=== PATIENT | male | born 1940 | race Caucasian/White ===

== ENCOUNTER 2022-07-16 13:17 | Inpatient (IN) | payer OTHER, MEDICAID ==
[~2022-07-16] VITALS: Ht 167.6 cm; Wt 66.3 kg
[2022-07-16] MEDS ORDERED: ACETAMINOPHEN 650MG SUPP PR STA (13:26)
[2022-07-16] MEDS ORDERED: CEFTRIAXONE 1 G PREMIX 50 ML IV ONE (13:30)
[2022-07-16] MEDS ORDERED: SODIUM CHLORIDE 0.9% 1000ML BAG (SEPSIS BOLUS) IV ONE (13:30)
[2022-07-16 13:55] LABS: BASOPHILS % 0.3 % (0.0-2.0); EOSINOPHILS % 0.4 % (0.0-5.0); HEMATOCRIT. 33.1 % (42.0-52.0); HEMOGLOBIN. 10.6 g/dL (14.0-18.0); LYMPHOCYTES % 17.9 % (20.0-50.0); MEAN CORPUSCULAR HEMOGLOBIN 30.3 pg (28.0-32.0); MEAN CORPUSCULAR VOLUME 94.5 fL (80.0-94.0); MEAN PLATELET VOLUME 7.4 fl (7.4-10.4); MONOCYTES % 6.8 % (2.0-8.0); NEUTROPHILS % 74.6 % (40.0-76.0); PLATELET 249 x1000/uL (130-400); RED BLOOD CELL COUNT 3.51 mill/uL (4.7-6.1); RED CELL DISTRIBUTION WIDTH 17.3 % (11.6-14.6)
[2022-07-16 14:05] LABS: CHLORIDE 99 mEq/L (98-107)
[2022-07-16 15:49] LABS: CLARITY URINE CLOUDY (CLEAR); COLOR URINE YELLOW (YELLOW); KETONES URINE NEGATIVE (NEGATIVE); LEUKOCYTE ESTERASE URINE 2+ (NEGATIVE); NITRITE URINE NEGATIVE (NEGATIVE); OCCULT BLOOD URINE 2+ (NEGATIVE); PH URINE 5.5 (4.5-8.0); PROTEIN URINE 1+ (NEGATIVE); SPECIFIC GRAVITY URINE 1.008 (1.005-1.030); UROBILINOGEN URINE 0.2 E.U./dL (0.2-1.0)
[2022-07-16 16:26] LABS: INR 1.1; PROTHROMBIN TIME 11.4 sec (9.6-11.0)
[2022-07-16 18:15] VITALS: BP 140/60
[2022-07-16 20:00] VITALS: BP 124/66
[2022-07-16 20:40] VITALS: BP 124/66
[2022-07-16 22:18] VITALS: BP 110/56
[2022-07-16 22:40] VITALS: BP 110/56
[2022-07-17] VITALS (19 sets, daily range): BP systolic 118–158; BP diastolic 52–104
[2022-07-17] MEDS ORDERED: GABA300S PO (06:06)
[2022-07-17] MEDS ORDERED: TAMS-11 PO (06:06)
[2022-07-17] MEDS ORDERED: ASPI-1497 PO (06:06)
[2022-07-17] MEDS ORDERED: AMLO5TAB4 PO (06:06)
[2022-07-17] MEDS ORDERED: GUAIFENESIN 200MG/10ML SUGAR FREE UDC PO PRN (07:00)
[2022-07-17] MEDS ORDERED: ACETAMINOPHEN 325MG TABLET PO PRN (07:00)
[2022-07-17] MEDS ORDERED: MAGNESIUM/ALUMINUM HYDROXIDE/SIMETHICONE 30ML UDC PO PRN (07:00)
[2022-07-17] MEDS ORDERED: ONDANSETRON HCL 4MG/2ML INJ IV PRN (07:00)
[2022-07-17] MEDS ORDERED: DOCUSATE SODIUM 100MG CAPSULE PO PRN (07:00)
[2022-07-17] MEDS ORDERED: TRAMADOL 50MG TABLET PO PRN (07:00)
[2022-07-17] MEDS ORDERED: NALOXONE HCL 0.4MG/ML VIAL IV PRN (08:30)
[2022-07-17] MEDS: AMLODIPINE 10MG TABLET PO SCH (09:43)
[2022-07-17] MEDS: ENOXAPARIN 40MG/0.4ML SYR SUBCUT SCH (09:44)
[2022-07-17] MEDS: PIPERACILLIN/TAZOBACTAM 3.375 G in DEXTROSE 5% WATER 50 ML IV SCH ×3 (10:23→21:37)
[2022-07-17] MEDS ORDERED: FINA5TAB11 PO (19:50)
[2022-07-17] MEDS ORDERED: ATOR-2 PO (19:50)
[2022-07-17 21:48] LABS: BASOPHILS % 0.4 % (0.0-2.0); EOSINOPHILS % 2.2 % (0.0-5.0); HEMATOCRIT. 28.3 % (42.0-52.0); HEMOGLOBIN. 9.3 g/dL (14.0-18.0); LYMPHOCYTES % 18.2 % (20.0-50.0); MEAN CORPUSCULAR HEMOGLOBIN 30.4 pg (28.0-32.0); MEAN CORPUSCULAR VOLUME 92.1 fL (80.0-94.0); MEAN PLATELET VOLUME 6.9 fl (7.4-10.4); MONOCYTES % 6.2 % (2.0-8.0); PLATELET 239 x1000/uL (130-400); RED BLOOD CELL COUNT 3.08 mill/uL (4.7-6.1); RED CELL DISTRIBUTION WIDTH 16.4 % (11.6-14.6)
[2022-07-17 22:22] LABS: CHLORIDE 98 mEq/L (98-107)
[2022-07-18] VITALS (14 sets, daily range): BP systolic 128–187; BP diastolic 44–149
[2022-07-18] MEDS: PIPERACILLIN/TAZOBACTAM 3.375 G in DEXTROSE 5% WATER 50 ML IV SCH ×3 (05:42→21:11)
[2022-07-18] MEDS: AMLODIPINE 10MG TABLET PO SCH (09:55)
[2022-07-18] MEDS: ENOXAPARIN 40MG/0.4ML SYR SUBCUT SCH (09:56)
[2022-07-18 12:10] LABS: HEMATOCRIT. 29.6 % (42.0-52.0); HEMOGLOBIN. 9.9 g/dL (14.0-18.0); LYMPHOCYTES % 21.9 % (20.0-50.0); MEAN CORPUSCULAR HEMOGLOBIN 30.7 pg (28.0-32.0); MEAN CORPUSCULAR VOLUME 92.2 fL (80.0-94.0); MEAN PLATELET VOLUME 7.4 fl (7.4-10.4); MONOCYTES % 7.1 % (2.0-8.0); NEUTROPHILS % 67.6 % (40.0-76.0); PLATELET 283 x1000/uL (130-400); RED BLOOD CELL COUNT 3.21 mill/uL (4.7-6.1); RED CELL DISTRIBUTION WIDTH 16.3 % (11.6-14.6)
[2022-07-18 12:11] LABS: BASOPHILS % 0.4 % (0.0-2.0)
[2022-07-18 13:28] LABS: CHLORIDE 98 mEq/L (98-107)
[2022-07-18 13:36] LABS: HDL CHOLESTEROL 45 mg/dL (40-59); LDL CHOLESTEROL 43 mg/dL (5-100)
[2022-07-18] MEDS ORDERED: METF500T60 PO (20:03)
[2022-07-19] VITALS (7 sets, daily range): BP systolic 123–135; BP diastolic 59–89
[2022-07-19] MEDS ORDERED: DEXTROSE 50% WATER 50ML SYRINGE IV PRN (01:15)
[2022-07-19] MEDS: PIPERACILLIN/TAZOBACTAM 3.375 G in DEXTROSE 5% WATER 50 ML IV SCH ×2 (05:02→14:12)
[2022-07-19] MEDS: INSULIN LISPRO 100 UNITS/ML SUBCUT SCH ×3 (06:10→17:15)
[2022-07-19] MEDS: BLOOD SUGAR DIAGNOSTIC STRIP TEST SCH ×3 (06:10→16:45)
[2022-07-19] MEDS ORDERED: BLOOD SUGAR DIAGNOSTIC STRIP TEST SCH (07:10)
[2022-07-19] MEDS: AMLODIPINE 10MG TABLET PO SCH (08:10)
[2022-07-19] MEDS: ENOXAPARIN 40MG/0.4ML SYR SUBCUT SCH (11:23)
== END 2022-07-19 20:35 | disposition home health service (06) | DRG 871 ==
LOC: ER 13:17 → 5EST 15:05 → EDBEDREQ 15:08 → EDBEDREQTM 15:08 → EDBEDREQSVC 15:08 → 5EST 18:01 → 8WST 07-18 17:53
PROVIDERS: ADMIT Hospitalist; ATTEND Hospitalist
DX: A41.9 Sepsis, unspecified organism (principal); E43 Unspecified severe protein-calorie malnutrition; L89.153 Pressure ulcer of sacral region, stage 3; N39.0 Urinary tract infection, site not specified; E87.1 Hypo-osmolality and hyponatremia; G93.40 Encephalopathy, unspecified; Z20.822 Contact with and (suspected) exposure to COVID-19; I10 Essential (primary) hypertension; E11.9 Type 2 diabetes mellitus without complications; E78.00 Pure hypercholesterolemia, unspecified; E87.5 Hyperkalemia; Z86.73 Personal history of transient ischemic attack (TIA), and cerebral infarction without residual deficits; Z68.26 Body mass index [BMI] 26.0-26.9, adult
CPT/HCPCS: 36415; 71045; 80053; 80061; 81003; 82962; 83036; 83605; 83880; 84134; 84145; 84484; 85025; 87077; 87186; 87426; 87804; 93005; 93970; 97162; 99291; A6261; C9803; J0696; J1650; J1815; J2543; J7030; J7060

== ENCOUNTER 2023-06-25 16:56 | Emergency (ER) | payer OTHER, MEDICAID ==
[~2023-06-25] VITALS: Ht 172.7 cm; Wt 64.0 kg
[~2023-06-25 16:56] MED LIST: AMLO5TAB4 PO; ASPI-1497 PO; ATOR-2 PO; FINA5TAB11 PO; GABA300S4 PO; METF500T60 PO; TAMS-11 PO
[2023-06-25 17:00] VITALS: O2SAT 97
[2023-06-25 20:10] LABS: BASOPHILS % 0.3 % (0.0-2.0); EOSINOPHILS % 5.2 % (0.0-5.0); HEMATOCRIT. 35.9 % (42.0-52.0); LYMPHOCYTES % 25.4 % (20.0-50.0); MEAN CORPUSCULAR HEMOGLOBIN 29.7 pg (28.0-32.0); MEAN CORPUSCULAR HGB CONC 33.3 g/dL (31.0-37.0); MEAN PLATELET VOLUME 6.8 fl (7.4-10.4); MONOCYTES % 9.1 % (2.0-8.0); PLATELET 222 x1000/uL (130-400); RED BLOOD CELL COUNT 4.03 mill/uL (4.7-6.1); RED CELL DISTRIBUTION WIDTH 15.4 % (11.6-14.6); WHITE BLOOD COUNT 9.1 x1000/uL (4.5-11.0)
[2023-06-25 20:21] LABS: CHLORIDE 101 mEq/L (98-107); INDEX HEMOLYSI 1 (1-3); INDEX ICTERIC 1 (1-4); INDEX LIPEMIC 1 (1-3); SODIUM 131 mEq/L (136-145)
[2023-06-25 20:31] LABS: ALANINE AMINOTRANSFERASE 17 IU/L (13-61); ALBUMIN 3.1 g/dL (3.4-5.0); ASPARTATE AMINOTRANSFERASE 14 IU/L (15-37); BILIRUBIN TOTAL 0.2 mg/dL (0.1-1.0); CALCIUM 8.6 mg/dL (8.5-10.1); CARBON DIOXIDE 26 mEq/L (21-32); CREATININE 0.8 mg/dL (0.6-1.3); GLUCOSE 105 mg/dL (70-105); NT PRO B-TYPE NATRIURETIC PEP 257 pg/mL (5-125); PROTEIN TOTAL 7.3 g/dL (6.0-8.3); TROPONIN I HIGH SENSITIVITY 5 ng/L (<78); UREA NITROGEN BLOOD 19 mg/dL (7-21)
[2023-06-25] MEDS ORDERED: SODIUM CHLORIDE 0.9% 500 ML IV ONE (20:45)
[2023-06-25] MEDS ORDERED: DIPHENOXYLATE/ATROPINE 2.5/0.025MG TABLET PO ONE (20:45)
[2023-06-25] MEDS ORDERED: AZIT250T12 MT (21:23)
[2023-06-25] MEDS ORDERED: TOPUD MT (21:23)
[2023-06-26 00:31] VITALS: BP 125/64; PULSE 94; RESP 15; TEMP 97.7
== END 2023-06-26 00:32 | disposition home or self-care (01) ==
LOC: ER 16:56
DX: R19.7 Diarrhea, unspecified (principal); E11.9 Type 2 diabetes mellitus without complications; E78.00 Pure hypercholesterolemia, unspecified; I10 Essential (primary) hypertension; Z86.73 Personal history of transient ischemic attack (TIA), and cerebral infarction without residual deficits; Z79.899 Other long term (current) drug therapy; Z20.822 Contact with and (suspected) exposure to COVID-19
CPT/HCPCS: 99285; 96360; 71045; 87426; 80053; 83880; 83605; 85025; 84484; 36415; 93005; J7040; C9803